=== PATIENT | female | born 1985 | race Asian ===

== ENCOUNTER 2017-05-07 10:58 | Emergency (ER) | payer BC ==
[2017-05-07 11:14] VITALS: BP 112/60
[2017-05-07] MEDS ORDERED: hydrOXYzine HCL TAB* 25 MG PO ONE (11:21)
--- NOTE | 2017-05-07 11:30 | UC ---
Skin Complaint HPI - HPI Summary HPI Summary: 32 yo female with the onset of hive last pm while preparing mushrooms has not taken anything no new meds/soaps/detergents - History of Current Complaint Chief Complaint: UCRash Time Seen by Provider: 05/07/17 11:16 Stated Complaint: POSSIBLE ALLERGIC REACTION Hx Obtained From: Patient Hx Last Menstrual Period: [id number] Onset/Duration: Gradual Onset, Lasting Hours Skin Exposure Onset/Duration: Hours Ago Timing: Constant Onset Severity: Moderate Current Severity: Moderate Pain Intensity: 0 Pain Scale Used: 0-10 Numeric Location: Diffuse Character: Pruritus, Hives, Raised Aggravating Factor(s): Nothing Alleviating Factor(s): Nothing Associated Signs & Symptoms: Positive: Rash - Allergy/Home Medications Allergies/Adverse Reactions: Allergies Allergy/AdvReac Type Severity Reaction Status Date / Time No Known Allergies Allergy Verified 05/07/17 11:09 Review of Systems Constitutional: Negative Skin: Rash Eyes: Negative ENT: Negative Respiratory: Negative Cardiovascular: Negative Gastrointestinal: Negative Genitourinary: Negative Motor: Negative Neurovascular: Negative Musculoskeletal: Negative Neurological: Negative Psychological: Negative Is Patient Immunocompromised?: No All Other Systems Reviewed And Are Negative: Yes PMH/Surg Hx/FS Hx/Imm Hx Previously Healthy: Yes - Surgical History Surgical History: None - Family History Known Family History: Negative: Cardiac Disease, Hypertension, Diabetes - Social History Alcohol Use: None Substance Use Type: None Smoking Status (MU): Never Smoked Tobacco Physical Exam Triage Information Reviewed: Yes Appearance: Well-Appearing, No Pain Distress, Well-Nourished Vital Signs: Initial Vital Signs Temp 98.8 F 05/07/17 11:02 Pulse 80 05/07/17 11:02 Resp 16 05/07/17 11:02 BP 112/60 05/07/17 11:02 Pulse Ox 98 05/07/17 11:02 Eyes: Positive: Conjunctiva Clear ENT: Positive: Normal ENT inspection Dental Exam: Normal Neck exam: Normal Respiratory: Positive: Lungs clear, Normal breath sounds, No respiratory distress Cardiovascular: Positive: RRR, No Murmur Musculoskeletal: Positive: ROM Intact, No Edema Neurological: Positive: Alert Psychological Exam: Normal Skin Exam: Other - scatterred hives/no angioedema vitiligo Course/Dx - Diagnoses Provider Diagnoses: Hives Discharge - Discharge Plan Condition: Stable Disposition: HOME Prescriptions: hydrOXYzine HCL TAB* [Atarax 25 MG TAB*] 25 mg PO QID PRN #20 tab PRN Reason: Itching Patient Education Materials: Urticaria (ED) Referrals: Ashleigh Washburn MD [Primary Care Provider] - 2 Days (if not better) Additional Instructions: don't take and drive may cause drowsiness
== END 2017-05-07 11:50 | disposition home or self-care (01) ==
LOC: UCEAST 10:58
DX: L50.9 Urticaria, unspecified (principal)
CPT/HCPCS: 99212; A9270-GY; G0463

== ENCOUNTER 2018-08-04 12:27 | Emergency (ER) | payer BC ==
--- NOTE | 2018-08-04 14:11 | ED ---
- HPI Summary HPI Summary: This patient is a 33 year old female presenting to [facility] with a CC of with abd pain for the 4 days. Pt it 22 weeks and 6 day . She was seen at the OB last Shayne checked for bladder infection by a mid- and did not receive results yet. She states the pain began before she went to OB. She denies bleeding at this time and unusual discharge. She does rate the pain 4/10 in severity. . She denies fever, chills, n/v, and loss of appetite. She does state that since the pain began she has been eating less. Hx uterine fibroids. - History of Current Complaint Chief Complaint: EDOBProblems Stated Complaint: 22 WKS PREG/ABD PAIN Time Seen by Provider: 08/04/18 13:51 Hx Obtained From: Patient Chief Complaint: Pain Onset/Duration: Started Days Ago, Still Present Timing: Constant Severity: Moderate Current Severity: Moderate Pain Intensity: 4 Location of Pain: Diffuse Associated Signs and Symptoms: Negative: Urinary Symptoms, Vaginal Bleeding or Discharge - Assessment Hx Now: No - Allergies/Home Medications Allergies/Adverse Reactions: Allergies Allergy/AdvReac Type Severity Reaction Status Date / Time No Known Allergies Allergy Verified 08/04/18 12:45 PMH/Surg Hx/FS Hx/Imm Hx Endocrine/Hematology History: Denies: Hx Diabetes, Hx Thyroid Disease Cardiovascular History: Denies: Hx Hypertension Respiratory History: Denies: Hx Asthma, Hx Chronic Obstructive Pulmonary Disease (COPD) GI History: Denies: Hx Ulcer Infectious Disease History: No Infectious Disease History: Denies: Hx Clostridium Difficile, Hx Hepatitis, Hx Human Immunodeficiency Virus (HIV), Hx of Known/Suspected MRSA, Hx Shingles, Hx Tuberculosis, Hx Known/ Suspected VRE, Hx Known/Suspected VRSA, History Other Infectious Disease, Traveled Outside the [place] in Last 30 Days - Family History Known Family History: Negative: Cardiac Disease, Hypertension, Diabetes - Social History Alcohol Use: None Substance Use Type: Reports: None Smoking Status (MU): Never Smoked Tobacco Review of Systems Negative: Fever, Chills Positive: Abdominal Pain. Negative: Vomiting, Nausea Genitourinary: Negative - bleeding Negative: discharge All Other Systems Reviewed And Are Negative: Yes Physical Exam - Summary Physical Exam Summary: GENERAL: Patient is a well-developed and nourished F who is lying comfortable in the stretcher. Patient is not in any acute respiratory distress. HEAD AND FACE: Normocephalic EYES: PERRLA, EOMI x 2. EARS: Hearing grossly intact. MOUTH: Oropharynx within normal limits. NECK: Supple, trachea is midline, no adenopathy, no JVD, no carotid bruit. CHEST: Symmetric, no tenderness at palpation LUNGS: Clear to auscultation bilaterally. No wheezing or crackles. CVS: Regular rate and rhythm, S1 and S2 present, no murmurs or gallops appreciated. ABDOMEN: ABD is gravid, right mid abd is TTP, tender in the RLQ and rovsings positive EXTREMITIES: Full ROM in all major joints, no edema, no cyanosis or clubbing. NEURO: Alert and oriented x 3. No acute neurological deficits. Speech is normal and follows commands. SKIN: Dry and warm - Physical Exam Triage Information Reviewed: Yes Vital Signs Reviewed: Yes Diagnostics - Vital Signs Vital Signs Temp Pulse Resp BP Pulse Ox 08/04/18 13:32 89 97 08/04/18 12:40 98.5 F 97 18 133/94 97 - Laboratory Result Diagrams: 08/04/18 14:23 08/04/18 14:23 Lab Statement: Any lab studies that have been ordered have been reviewed, and results considered in the medical decision making process. - Radiology MRI ABD Radiology Interpretation Completed By: Radiologist Summary of Radiographic Findings: 1. WHAT MAY BE A NORMAL APPENDIX IS IDENTIFIED IN THE RIGHT LOWER QUADRANT, BUT IS NOT. WELL VISUALIZED. THERE ARE NO FINDINGS TO SUGGEST A DILATED APPENDIX. THERE IS NO EDEMA OR. INFLAMMATORY CHANGE OF THE RIGHT LOWER QUADRANT. IF SYMPTOMS PERSIST, RECOMMEND REPEAT. IMAGING. 2. THERE IS A SMALL AMOUNT OF FREE FLUID WITHIN THE PELVIS. 3. FIBROID UTERUS. 4. 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 ED physician has reviewed this report. - Additional Comments Diagnostic Additional Comments: The US reveals, per radiologist, 1. SINGLE LIVE INTRAUTERINE GESTATION AT 22 WEEKS, 5 DAYS BY COMPOSITE GESTATIONAL AGE. 2. LIMITED EVALUATION OF ANATOMY. 3. 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 RECOMMEND CORRELATION WITH DIRECT VISUALIZATION. ED physician has reviewed this report. Appendix US reveals, per radiologist, THE APPENDIX IS NOT VISUALIZED. THERE IS NO FREE OR LOCULATED FLUID WITHIN THE RIGHT LOWER QUADRANT. ED physician has reviewed this report. Course/Dx - Course Assessment/Plan: This patient is a 33 year old female presenting to [facility] with a CC of with abd pain for the 4 days. The US reveals, per radiologist, 1. SINGLE LIVE INTRAUTERINE GESTATION AT 22 WEEKS, 5 DAYS BY COMPOSITE GESTATIONAL AGE. 2. LIMITED EVALUATION OF ANATOMY. 3. 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 RECOMMEND CORRELATION WITH DIRECT VISUALIZATION. Appendix US reveals, per radiologist, THE APPENDIX IS NOT VISUALIZED. THERE IS NO FREE OR LOCULATED FLUID WITHIN THE RIGHT LOWER. QUADRANT. MRI ABD reveals, 1. WHAT MAY BE A NORMAL APPENDIX IS IDENTIFIED IN THE RIGHT LOWER QUADRANT, BUT IS NOT. WELL VISUALIZED. THERE ARE NO FINDINGS TO SUGGEST A DILATED APPENDIX. THERE IS NO EDEMA OR. INFLAMMATORY CHANGE OF THE RIGHT LOWER QUADRANT. IF SYMPTOMS PERSIST , RECOMMEND REPEAT. IMAGING. 2. THERE IS A SMALL AMOUNT OF FREE FLUID WITHIN THE PELVIS. 3. FIBROID UTERUS. 4. 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 Blood work and UA obtained. US was non diagnostic for appendix. I am concerned as her examination was consistent with appendicitis. I informed Dr Baldwin of this and am worried as this is am emergency and he agrees with the need for an MRI. 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 - Diagnoses Provider Diagnoses: Abdominal pain during , Uterine fibroid, Blair's duct cyst - Provider Notifications Discussed Care Of Patient With: Rogelio Baldwin Time Discussed With Above Provider: 16:26 Instructed by Provider To: Other - US was non diagnostic for appendix. I am concerned as her examination was consistent with appendicitis. I informed Dr Baldwin of this and am worried as this is am emergency and he agrees with the need for an MRI. Discharge - Sign-Out/Discharge Documenting (check all that apply): Patient Departure Patient Received Moderate/Deep Sedation with Procedure: No - Discharge Plan Condition: Stable Disposition: HOME Patient Education Materials: Abdominal Pain in (ED) Referrals: Ashleigh Washburn MD [Primary Care Provider] - Delaney Monique MD [Medical Doctor] - 2 Days Additional Instructions: Follow up with your primary care physician in 1-3 days. RETURN TO THE EMERGENCY DEPARTMENT FOR CHANGING OR WORSENING SYMPTOMS. - Billing Disposition and Condition Condition: STABLE Disposition: Home - Attestation Statements Document Initiated by Scribe: Yes Documenting Scribe: Hema Frankel Provider For Whom Fady is Documenting (Include Credential): Vincenzo Alcocer MD Scribe Attestation: Hema Cooper , scribed for Vincenzo Alcocer MD on 08/05/18 at 1759. Scribe Documentation Reviewed: Yes Provider Attestation: The documentation as recorded by the Hema castillo accurately reflects the service I personally performed and the decisions made by me, Vincenzo Alcocer MD Status of Scribe Document: Viewed
[2018-08-04] MEDS ORDERED: NS 0.9% 1000 ML** 1,000 ML IV ONE (14:12)
[2018-08-04 14:29] LABS: ABS Basophils 0 10^3/ul (0-0.2); ABS Eosinophils 0 10^3/ul (0-0.6); ABS Lymphocytes 1.4 10^3/ul (1.0-4.8); ABS Monocytes 0.9 10^3/ul (0-0.8); ABS Neutrophils 8.6 10^3/ul (1.5-7.7); ABS Nucleated RBC 0 10^3/ul; Eosinophil % 0.2 %; Hematocrit 39 % (35-47); Hemoglobin 13.3 g/dl (12.0-16.0); Mean Corpuscular HGB Conc 34 g/dl (31-36); Mean Corpuscular Hemoglobin 30 pg (27-31); Mean Corpuscular Volume 90 fL (80-97); Nucleated Red Blood Cells % 0; Platelet Count 215 10^3/ul (150-450); Red Blood Count 4.37 10^6/ul (4.00-5.40); Red Cell Distribution Width 15 % (10.5-15)
[2018-08-04 14:45] LABS: Albumin 3.7 g/dL (3.2-5.2); Albumin/Globulin Ratio 1.2 (1-3); BUN/Creatinine Ratio 23.7 (8-20); C Reactive Protein 15.6 mg/L (<8.01); EGFR African American 237.5 (>60); EGFR Non-African American 196.3 (>60); Globulin 3.1 g/dL (2-4); Potassium 3.5 mmol/L (3.5-5.0); Total Bilirubin 0.5 mg/dL (0.2-1.0); Total Protein 6.8 g/dL (6.4-8.9)
[2018-08-04 16:29] LABS: Urine Appearance Clear; Urine Bilirubin Negative (Negative); Urine Blood Negative (Negative); Urine Color Yellow; Urine Glucose Negative (Negative); Urine Ketones Negative (Negative); Urine Nitrite Negative (Negative); Urine Protein Negative (Negative); Urine Specific Gravity 1.006 (1.010-1.030); Urine Urobilinogen Negative (Negative)
[2018-08-04 18:26] VITALS: BP 104/76
== END 2018-08-04 18:24 | disposition home or self-care (01) ==
LOC: ED 12:27
DX: O34.12 Maternal care for benign tumor of corpus uteri, second trimester (principal); Z3A.22 22 weeks gestation of pregnancy; O99.89 Other specified diseases and conditions complicating pregnancy, childbirth and the puerperium; Q52.4 Other congenital malformations of vagina
CPT/HCPCS: 36415; 74181; 76705; 76815; 80053; 81003; 83605; 83690; 85025; 86140; 96360; 96361; 99283

== ENCOUNTER 2018-12-01 11:46 | Inpatient (IN) | payer BC ==
[2018-12-01] MEDS: Promethazine INJ(RESTRICTED)* 25 MG/ML 1 ML VIAL IM PRN (18:34)
[2018-12-01] MEDS: Nalbuphine* 10 MG/ML 1 ML VIAL IM PRN (18:35)
[2018-12-01] MEDS ORDERED: Lactated Ringers 1000 ML Bag* 1,000 ML IV ONE (20:49)
[2018-12-01] MEDS ORDERED: Buffered Lidocaine 1% SYRIN* 1 ML/SYRINGE INTRADERM ONE (20:49)
[2018-12-01] MEDS ORDERED: Dinoprostone* 10 MG VAG.SUPP VAGINAL ONE (20:49)
--- NOTE | 2018-12-01 20:59 | HP ---
General Information - Reason for Visit Contractions started this am, spread out over the afternoon. Received nubain/ phenergan with several hours nap. Planning induction for A1GDM tonight anyway - General Information Maternal Age: 33 Grav: 2 Para: 0 SAB: 1 IEA: 0 Estimated Due Date: 12/02/18 Determined By: LMP Maternal Blood Type and Rh: AB Positive - Results this Serology/RPR Result: Non-Reactive Rubella Result: Immune HBsAg Result: Negative HIV Result: Negative GBS Culture Result: Negative Past Medical History Pertinent Past Medical History: Non-Contributory Pertinent Past Surgical History: None Pertinent Family History: Non-Contributory - Antepartal Records Antepartal Records: Reviewed, Complicated by: - A1GDM, 3cm nonobstructing JUAN fibroid Review of Systems Constitutional: Uncomfortable - intermittent contractions CV Complaint: No Respiratory: Shortness of Breath: No Gastrointestinal: No Nausea/Vomiting, Normal Bowel Movement Genitourinary: No Dysuria, No Bleeding, No Leaking Fluid Musculoskeletal: Contractions Neurological: No Headache Movement: Normal Exam Allergies/Adverse Reactions: Allergies No Known Allergies Allergy (Verified 10/28/18 03:33) WNL - Measurements Height: 5 ft 5 in Weight: 139 lb 15.896 oz Weight in lbs: 139.650486 Body Mass Index (BMI): 23.3 Pre- Weight: 114 lb 10.246 oz Weight Gained This : 25.353 lbs and 0.002 ozs - Exam Breast: Breast Exam Deferred Extremities: No Edema Heart: Normal Rhythm/Heart Sounds HEENT: No Significant Findings - Abdominal Exam Abdomen Exam: Non-Tender - Ultrasound/Biophysical Profile Ultrasound Status: Not Done Targeted Exam Findings Cervical Exam: 1cm Effacement: 80% Station: -3 Presenting Part: Vertex Membrane Status: Intact EFM Findings - External Monitor Findings Baseline Heart Rate: 140 External Monitor Findings: Accelerations Present, No Pattern of Variable or Late Decelerations, Variability Moderate, Baseline Stable - Originally q2-3, then spaced out Assessment/Plan - Assessment @39.6wks here for induction for A1GDM - very well controlled. Had contractions earlier today that have improved s/p fluids and nubain/phenergam. - Obstetrical Risk Factors Obstetrical Risk Factors: Gestational Diabetes - Plan Plan: Induction, Cervical Ripening, Admit - Anticipate Vaginal Delivery
--- NOTE | 2018-12-01 22:17 | PN ---
Progress Note - Progress Note Date of Service: 12/01/18 Note: Pt woke s/p nap and is comfortable. Cervidil placed at 22:10 in posterior fornix.
[2018-12-01 22:55] LABS: ABS Lymphocytes 1.7 10^3/ul (1.0-4.8); ABS Monocytes 0.7 10^3/ul (0-0.8); ABS Neutrophils 5.3 10^3/ul (1.5-7.7); Eosinophil % 0.4 %; Hematocrit 44 % (35-47); Hemoglobin 14.9 g/dL (12.0-16.0); Lymphocyte % 21.9 %; Mean Corpuscular HGB Conc 34 g/dL (31-36); Mean Corpuscular Hemoglobin 32 pg (27-31); Mean Corpuscular Volume 95 fL (80-97); Mean Platelet Volume 10.5 fL (7.4-10.4); Nucleated Red Blood Cells % 0.1; Platelet Count 153 10^3/uL (150-450); Red Blood Count 4.65 10^6 /uL (3.70-4.87); Red Cell Distribution Width 14 % (10-15); White Blood Count 7.7 10^3/uL (3.5-10.8)
[2018-12-02] MEDS: Promethazine INJ(RESTRICTED)* 25 MG/ML 1 ML VIAL IM PRN (02:29)
[2018-12-02] MEDS: Lactated Ringers 1000 ML Bag* 1,000 ML IV SCH ×3 (02:29→07:47)
[2018-12-02] MEDS: Nalbuphine* 10 MG/ML 1 ML VIAL IM PRN (02:30)
[2018-12-02] MEDS ORDERED: OBEPIDURAL* 250 ML EPIDURAL ONE (06:48)
[2018-12-02] MEDS ORDERED: Phenylephrine 40 MCG/ML SYRINGE IV PUSH PRN ×2 (08:06)
[2018-12-02] MEDS ORDERED: Lactated Ringers 1000 ML Bag* 1,000 ML IV ONE (08:06)
[2018-12-02] MEDS ORDERED: Sodium Citrate/Citric Acid* 15 ML UDC PO PRN (08:06)
[2018-12-02] MEDS ORDERED: Famotidine TAB* 20 MG PO PRN (08:06)
[2018-12-02] MEDS ORDERED: Oxytocin in LR* 20 UNITS/1,000 ML BAG IVPB ONE (08:16)
[2018-12-02] MEDS ORDERED: OBEPIDURAL* 250 ML EPIDURAL SCH (09:00)
[2018-12-02] MEDS ORDERED: Lactated Ringers 1000 ML Bag* 1,000 ML IV SCH ×2 (09:00→13:00)
[2018-12-02] MEDS ORDERED: Oxytocin in LR* 20 UNITS/1,000 ML BAG IVPB SCH ×2 (09:00→13:00)
[2018-12-02] MEDS ORDERED: ceFOXitin 2 GM IVPREMIX* 2 GM/50 ML BAG ONE (11:52)
[2018-12-02] MEDS ORDERED: Glycerin ADULT SUPP PR PRN (12:52)
[2018-12-02] MEDS ORDERED: Acetaminophen TAB* 325 MG PO PRN (12:52)
--- NOTE | 2018-12-02 12:58 | PROCNOTE ---
[facility] OB: Delivery Note - Delivery A Date of : 12/02/18 Time of : 11:44 Sex: Male Score 1 Minute: 9 Score 5 Minutes: 9 Gestational Age in Weeks and Days at Delivery: 40 Weeks and 0 Days Delivery Method: Spontaneous Vaginal Labor: Induced Did Patient attempt ?: N/A, No Previous Amniotic Fluid: Meconium Estimated Blood Loss: 500 Anesthesia/Analgesia: CEI for Labor Delivered By: Gavino Nassar - Nursery Level of Nursery: Regular/Bedside - Perineum Perineal Injury: 3rd Degree Extension - partial third degree with sulcus tear on left Perineal Repair: By Delivering Practioner - 2.0 vicryl X 3 used/standard fashion / rectal exam with good sphincter control. rectum intact. - Events Delivery Events of Note: Pitocin During Labor - difficult membranes with retained membranes requiring manual exploration and delivery of membranes/ pt to get X 1 dose cefoxitin/ placenta intact 3vc/ spontaneous
[2018-12-02] MEDS: Dibucaine 1% 28.35 GM TUBE PR PRN (14:03)
[2018-12-02] MEDS: Witch Hazel PAD* JAR TOPICAL PRN (14:03)
[2018-12-02] MEDS ORDERED: Ammonia Inhalant* 1 EA AMP ONE (14:13)
[2018-12-02] MEDS: Ibuprofen TAB* 600 MG PO PRN ×2 (14:15→20:34)
[2018-12-02] MEDS: Docusate CAP* 100 MG PO SCH ×2 (14:16→20:34)
[2018-12-02] MEDS ORDERED: Lidocaine 1% INJ* 10 MG/ML 30 ML SDV ONE (14:34)
[2018-12-02] MEDS ORDERED: ceFOXitin 2 GM IVPREMIX* 2 GM/50 ML BAG IVPB ONE (18:00)
[2018-12-02] MEDS: Simethicone TAB* 80 MG TAB.CHEW PO SCH (22:20)
[2018-12-03] MEDS: Ibuprofen TAB* 600 MG PO PRN ×3 (03:56→18:31)
[2018-12-03] MEDS: Dibucaine 1% 28.35 GM TUBE PR PRN (06:18)
[2018-12-03 07:53] LABS: ABS Lymphocytes 1.6 10^3/ul (1.0-4.8); ABS Monocytes 0.6 10^3/ul (0-0.8); ABS Neutrophils 6.3 10^3/ul (1.5-7.7); Eosinophil % 0.3 %; Hematocrit 34 % (35-47); Hemoglobin 12.1 g/dL (12.0-16.0); Lymphocyte % 18.9 %; Mean Corpuscular HGB Conc 35 g/dL (31-36); Mean Corpuscular Hemoglobin 33 pg (27-31); Mean Corpuscular Volume 94 fL (80-97); Mean Platelet Volume 10.3 fL (7.4-10.4); Platelet Count 117 10^3/uL (150-450); Red Blood Count 3.65 10^6 /uL (3.70-4.87); Red Cell Distribution Width 14 % (10-15); White Blood Count 8.5 10^3/uL (3.5-10.8)
[2018-12-03] MEDS: Docusate CAP* 100 MG PO SCH ×3 (08:59→20:35)
[2018-12-03] MEDS ORDERED: Varicella Virus Vaccine Live* 0.5 ML VIAL SUBCUT ONE (09:00)
[2018-12-03] MEDS: Witch Hazel PAD* JAR TOPICAL PRN (09:00)
[2018-12-03] MEDS ORDERED: Ferrous Gluconate TAB* 324 MG TAB PO SCH (09:00)
[2018-12-04] MEDS: Ibuprofen TAB* 600 MG PO PRN ×2 (01:21→08:46)
[2018-12-04] MEDS: Docusate CAP* 100 MG PO SCH (08:46)
[2018-12-04 08:52] VITALS: BP 113/74
== END 2018-12-04 14:15 | disposition home or self-care (01) | DRG 541 ==
LOC: MCHOBOUT 11:46 → MCHOB 20:58
PROVIDERS: ADMIT Obstetrics & Gynecology; ATTEND Obstetrics & Gynecology
PROC: 10E0XZZ Delivery of Products of Conception, External Approach (ICD-10-PCS; principal; 2018-12-02)
PROC: 10907ZC Drainage of Amniotic Fluid, Therapeutic from Products of Conception, Via Natural or Artificial Opening (ICD-10-PCS; 2018-12-02)
PROC: 0DQR0ZZ Repair Anal Sphincter, Open Approach (ICD-10-PCS; 2018-12-02)
PROC: 10D17Z9 Manual Extraction of Products of Conception, Retained, Via Natural or Artificial Opening (ICD-10-PCS; 2018-12-02)
DX: O24.420 Gestational diabetes mellitus in childbirth, diet controlled (principal); Z37.0 Single live birth; O70.20 Third degree perineal laceration during delivery, unspecified; O73.1 Retained portions of placenta and membranes, without hemorrhage; O90.81 Anemia of the puerperium; D64.9 Anemia, unspecified; Z3A.40 40 weeks gestation of pregnancy
CPT/HCPCS: 36415; 85025; 86850; 86900; 86901; A9270-GY; J0694; J2300; J2550